=== PATIENT | female | born 1995 | race Caucasian/White ===

== ENCOUNTER 2017-05-11 17:51 | Emergency (ER) | END 2017-05-11 22:38 | disposition home or self-care (01) ==

== ENCOUNTER 2017-05-11 22:52 | Outpatient (CLI) | END 2017-05-12 00:33 | disposition home or self-care (01) ==

== ENCOUNTER 2018-10-30 20:21 | Emergency (ER) | payer OTHER ==
[~2018-10-30] VITALS: Ht 157.5 cm; Wt 78.4 kg
[~2018-10-30 20:21] MED LIST: ACET500C5 PO; CEPH-443 PO; PREN-93 PO
[2018-10-30 20:33] VITALS: BP 113/59; PULSE 90; RESP 16; Ht 157.5 cm; Wt 78.4 kg
[2018-10-30] MEDS ORDERED: ACETAMINOPHEN 325 MG TAB PO STA (22:53)
== END 2018-10-31 03:50 | disposition home or self-care (01) ==
LOC: FTE 20:21
DX: O26.891 Other specified pregnancy related conditions, first trimester (principal); R10.32 Left lower quadrant pain; Z3A.01 Less than 8 weeks gestation of pregnancy
CPT/HCPCS: 36415; 76801; 76817; 80053; 81001; 84702; 85025; 86900; 86901; 87086; Z7502; Z7610

== ENCOUNTER 2018-10-31 20:42 | Emergency (ER) | payer OTHER ==
[~2018-10-31] VITALS: Ht 157.5 cm; Wt 78.6 kg
[2018-10-31 20:59] VITALS: Ht 157.5 cm; Wt 78.6 kg
[2018-10-31] MEDS ORDERED: ACETAMINOPHEN 500 MG TAB PO STA (22:44)
[2018-11-01 01:02] VITALS: BP 129/82; PULSE 80; RESP 18
== END 2018-11-01 01:03 | disposition home or self-care (01) ==
LOC: FTE 20:42
DX: O23.41 Unspecified infection of urinary tract in pregnancy, first trimester (principal); R10.2 Pelvic and perineal pain; Z3A.01 Less than 8 weeks gestation of pregnancy
CPT/HCPCS: 76801; 76817; 80053; 81001; 82150; 83690; 84702; 85025; Z7610; 36415